=== PATIENT | female | born 1985 | race Asian ===

== ENCOUNTER → 2021-07-24 | Outpatient (CLI) | payer SELFPAY ==
[2021-07-24 13:22] LABS: BASO % 0.4 % (0.0-1.0); EOS # 0.1 10^3/uL (0.0-0.5); HEMATOCRIT 37.5 % (36.0-47.0); HEMOGLOBIN 12.9 g/dl (12.0-15.5); LYMPH # 1.1 10^3/uL (1.5-5.0); LYMPH % 16.5 % (24.0-44.0); MEAN CORPUSCULAR HEMOGLOBIN 33.3 pg (27.0-33.0); MEAN CORPUSCULAR HGB CONC 34.4 g/dl (32.0-36.5); MEAN CORPUSCULAR VOLUME 96.9 fl (80.0-96.0); MONO # 0.4 10^3/uL (0.0-0.8); MONO % 6.4 % (2.0-8.0); NEUTROPHILS # 5.2 10^3/uL (1.5-8.5); NEUTROPHILS % 75.3 % (36.0-66.0); PLATELET COUNT, AUTOMATED 254 10^3/uL (150-450); RED BLOOD COUNT 3.87 10^6/uL (4.00-5.40); WHITE BLOOD COUNT 6.9 10^3/uL (4.0-10.0)
[2021-07-24 14:42] LABS: GC DNA AMPLIFICATION NEGATIVE (NEGATIVE)
== END ==
LOC: M PLALAB 11:13
PROVIDERS: ATTEND Obstetrics & Gynecology
DX: Z34.92 Encounter for supervision of normal pregnancy, unspecified, second trimester (principal)

== ENCOUNTER → 2021-09-04 | Outpatient (CLI) | payer BC | LOC: M WHC 07:37 | PROVIDERS: ATTEND Obstetrics & Gynecology | DX: Z34.02 Encounter for supervision of normal first pregnancy, second trimester (principal) ==

== ENCOUNTER → 2021-10-23 | Outpatient (CLI) | payer BC ==
[2021-10-23 14:28] LABS: HEMOGLOBIN 11.8 g/dl (12.0-15.5); MEAN CORPUSCULAR HEMOGLOBIN 34.1 pg (27.0-33.0); MEAN CORPUSCULAR HGB CONC 32.8 g/dl (32.0-36.5); PLATELET COUNT, AUTOMATED 217 10^3/uL (150-450); RED BLOOD COUNT 3.46 10^6/uL (4.00-5.40); WHITE BLOOD COUNT 6.5 10^3/uL (4.0-10.0)
[2021-10-23 17:13] LABS: GC DNA AMPLIFICATION NEGATIVE (NEGATIVE)
== END ==
LOC: M PLALAB 10:20
PROVIDERS: ATTEND Obstetrics & Gynecology
DX: Z34.02 Encounter for supervision of normal first pregnancy, second trimester (principal)

== ENCOUNTER → 2021-12-11 | Outpatient (CLI) | payer BC | LOC: M RAD 15:22 | PROVIDERS: ATTEND Obstetrics & Gynecology | DX: M79.604 Pain in right leg (principal) ==

== ENCOUNTER → 2021-12-18 | Outpatient (REF) | payer BC | LOC: M SFHCWAGY 15:07 | PROVIDERS: ATTEND Obstetrics & Gynecology | DX: Z36.89 Encounter for other specified antenatal screening (principal); Z3A.36 36 weeks gestation of pregnancy ==

== ENCOUNTER 2022-01-15 14:17 | Inpatient (IN) | payer BC, OTHER ==
[~2022-01-15] VITALS: Ht 157.5 cm; Wt 79.2 kg
[2022-01-15] MEDS ORDERED: PRENTAB9 PO (14:32)
[2022-01-15] MEDS ORDERED: HOME MED LIST COMPLETE! XX SCH (14:35)
[2022-01-15 14:38] VITALS: BP 130/73
[2022-01-15] MEDS ORDERED: LACTATED RINGER'S 1000 ML IV STA (14:57)
[2022-01-15] MEDS ORDERED: OXYTOCIN INJ 10 UNITS/ML VIAL (J2590) IM PRN (15:00)
[2022-01-15] MEDS ORDERED: CARBOPROST TROMETHAMINE 250 MCG/ML AMP IM PRN (15:00)
[2022-01-15] MEDS ORDERED: TRANEXAMIC ACID INJection 1,000 MG in NS 100 ML IV PRN (15:00)
[2022-01-15] MEDS ORDERED: LIDOCAINE 1% MDV 20ML VIAL INFIL PRN (15:00)
[2022-01-15] MEDS ORDERED: METHYLERGONOVINE MALEATE 0.2 MG/ML VIAL (J2210) IM PRN (15:00)
[2022-01-15] MEDS ORDERED: OXYTOCIN DRIP 30 UNITS in IV 1 EA IV PRN (15:00)
[2022-01-15 15:30] LABS: HEMATOCRIT 39.3 % (36.0-47.0); HEMOGLOBIN 13.7 g/dl (12.0-15.5); MEAN CORPUSCULAR HEMOGLOBIN 34.7 pg (27.0-33.0); MEAN CORPUSCULAR HGB CONC 34.9 g/dl (32.0-36.5); MEAN CORPUSCULAR VOLUME 99.5 fl (80.0-96.0); PLATELET COUNT, AUTOMATED 240 10^3/uL (150-450); RED BLOOD COUNT 3.95 10^6/uL (4.00-5.40); WHITE BLOOD COUNT 7.6 10^3/uL (4.0-10.0)
[2022-01-15 16:41] VITALS: BP 110/68
[2022-01-15] MEDS ORDERED: miSOPROStol 50MCG 1/2 TABLET PO SCH (17:10)
[2022-01-15 17:16] VITALS: BP 105/64
[2022-01-15 19:22] VITALS: BP 110/66
[2022-01-15 21:12] VITALS: BP 113/71
[2022-01-16] VITALS (27 sets, daily range): BP systolic 101–149; BP diastolic 56–90
[2022-01-16] MEDS ORDERED: OXYTOCIN DRIP 30 UNITS in IV 1 EA IV SCH (01:20)
[2022-01-16] MEDS ORDERED: LR 1,000 ML IV SCH (01:20)
[2022-01-16] MEDS ORDERED: DIBUCAINE 1% OINTMENT 30GM TOP PRN (07:15)
[2022-01-16] MEDS ORDERED: MOM 30ML SUSPENSION UDC PO PRN (07:15)
[2022-01-16] MEDS ORDERED: ACETAMINOPHEN 500 MG TAB PO PRN (07:15)
[2022-01-16] MEDS ORDERED: DOCUSATE SODIUM 100MG CAPSULE PO PRN (07:15)
[2022-01-16] MEDS ORDERED: RHOGAM 300 MCG (1500 IU) INJ (J2790) IM SCH (07:15)
[2022-01-16] MEDS ORDERED: IBUPROFEN 800 MG TAB PO PRN (07:15)
[2022-01-16] MEDS ORDERED: ANUSOL HC CREAM 30GM TOP PRN (07:15)
[2022-01-16] MEDS ORDERED: ACETAMINOPHEN TAB 650MG DOSE (2X325MG) PO PRN (07:15)
[2022-01-16] MEDS ORDERED: IBUPROFEN 600MG TAB PO PRN (07:15)
[2022-01-16] MEDS ORDERED: AMPICILLIN SOD/SULBACTAM SOD 3 GM in D5W MINI-BAG PLUS 100 ML IV ONE (09:05)
[2022-01-16] MEDS: PRENATAL VITAMINS CHEWABLE TABLET PO SCH (11:12)
[2022-01-17 06:32] LABS: HEMATOCRIT 30.1 % (36.0-47.0); MEAN CORPUSCULAR HEMOGLOBIN 34.9 pg (27.0-33.0); MEAN CORPUSCULAR HGB CONC 34.6 g/dl (32.0-36.5); PLATELET COUNT, AUTOMATED 186 10^3/uL (150-450); RED BLOOD COUNT 2.98 10^6/uL (4.00-5.40); WHITE BLOOD COUNT 14.8 10^3/uL (4.0-10.0)
[2022-01-17 06:42] LABS: HEMOGLOBIN 10.4 g/dl (12.0-15.5)
[2022-01-17 07:03] VITALS: BP 92/47
[2022-01-17] MEDS: PRENATAL VITAMINS CHEWABLE TABLET PO SCH (10:55)
[2022-01-17 17:36] VITALS: BP 105/59
[2022-01-18 06:00] VITALS: BP 99/57
[2022-01-18] MEDS: PRENATAL VITAMINS CHEWABLE TABLET PO SCH (08:34)
[2022-01-18] MEDS ORDERED: MEASLES,MUMPS,RUBELLA VACCINE INJ (MMR-II) (90707) SC.IMMUN ONE (09:00)
[2022-01-18] MEDS ORDERED: ACET-683 PO (09:18)
[2022-01-18] MEDS ORDERED: IBUP80TA PO (09:18)
== END 2022-01-18 11:02 | disposition home or self-care (01) | DRG 560 ==
LOC: M LDI 14:17 → M OBS 01-16 11:39
PROVIDERS: ADMIT Advanced Practice Midwife; ATTEND Advanced Practice Midwife
PROC: 10E0XZZ Delivery of Products of Conception, External Approach (ICD-10-PCS; principal; 2022-01-15)
PROC: 0KQM0ZZ Repair Perineum Muscle, Open Approach (ICD-10-PCS; 2022-01-15)
PROC: 3E0P7GC Introduction of Other Therapeutic Substance into Female Reproductive, Via Natural or Artificial Opening (ICD-10-PCS; 2022-01-15)
DX: O41.03X0 Oligohydramnios, third trimester, not applicable or unspecified (principal); O72.1 Other immediate postpartum hemorrhage; O48.0 Post-term pregnancy; Z3A.40 40 weeks gestation of pregnancy; O70.1 Second degree perineal laceration during delivery; Z37.0 Single live birth